=== PATIENT | female | born 1960 | race African-American/Black ===

== ENCOUNTER 2016-08-12 17:18 | Emergency (ER) | payer MEDICARE, MEDICAID ==
[~2016-08-12] VITALS: Ht 157.5 cm; Wt 56.7 kg
[~2016-08-12 17:18] MED LIST: ACETAMINOPHEN-1 EAC1 ORAL; ASPIRIN81 MG ORAL; BENADRYL ALLERG25 M1 PO; CATAPRES-TTS-31 EA TDERMAL; CIPROFLOXACIN500 M2 ORAL; COLACE100 MG/10 GT; COZAAR50 MG ORAL; CYCLOBENZAPRINE10 MG ORAL; FERROUS SULFAT325 MG ORAL; FIORICET1 EA ORAL; HYDROCODON-ACE1 EAC8 ORAL; LOPRESSOR25 M1 ORAL; MACROBID 100 M100 MG PO; MAG-OX 400400 MG PO; METOPROLOL SUC100 MG PO; METRONIDAZOLE500 MG ORAL; MIRALAX17 G2 ORAL; NITROSTAT0.4 M1 SL; NITROSTAT0.4 M2 SL; NORCO 10-325 T1 EACH PO; NORCO 5-325 TA1 EACH ORAL; NORCO 5-325 TA1 EACH PO; NORCO 5/3251 TAB ORAL; NORCO 7.5/3251 EA ORAL; NORCO1 E1 ORAL; NORVASC10 MG ORAL; NORVASC2.5 MG ORAL; OMEPRAZOLE20 M2 ORAL; PROTONIX40 MG ORAL; RISPERDAL1 MG PO; VICODIN ES 7.51 EACH ORAL; VICODIN ES 7.51 EACH PO; ZOFRAN ODT4 MG ORAL
[2016-08-12] MEDS ORDERED: Famotidine 20 MG/ 2ML VIAL IVP ONE (17:45)
[2016-08-12] MEDS ORDERED: Tylenol #3 tab (300mg/30mg) ORAL ONE (17:45)
--- NOTE | 2016-08-12 17:58 | Emergency Room Report ---
History of Present Illness General Chief Complaint: Chest Pain Source: Patient, Medical Record Present Illness HPI [id number] with chest pain for 4 days. pain is left sided, non radiating, worse with movement, reproducible. No associated fever/chills, cough, SOB. Per EMR, multiple visits here before - has had negative workup. Thought atypical chest pain d/t HTN. Also c/o 4 days of generalized abd pain. Denies assoc n/v/diarrhea. previous appy. No urinary complaints. Allergies: Coded Allergies: IBUPROFEN (Verified Allergy, Intermediate, RASH, 04/18/12) METOCLOPRAMIDE HCL (Verified Allergy, Intermediate, RASH, 04/18/12) MORPHINE (Verified Allergy, Intermediate, ESOPHAGUS CLOSED UP, 04/18/12) [place] 1999 PROCHLORPERAZINE EDISYLATE (Verified Allergy, Intermediate, RASH, 04/18/12) PROCHLORPERAZINE MALEATE (Verified Allergy, Intermediate, RASH, 04/18/12) Patient History Past Medical History: HTN Past Surgical History: appy Pertinent Family History: none Social History: Denies: alcohol use, drug use, smoking Last Menstrual Period: na Now: No Immunizations: UTD Reviewed Nursing Documentation: PMH: Agreed, PSxH: Agreed Nursing Documentation-PMH Past Medical History: No History, Except For Hx Cardiac Problems: Yes Hx Hypertension: Yes Hx COPD: No - restless leg syndrome Hx Diabetes: No Hx Cancer: No Hx Gastrointestinal Problems: Yes - GERD Hx Neurological Problems: No Hx Dizziness: Yes - X4 a week Hx Headaches: Yes - migraine Hx Numbness: Yes - bilateral legs and arms Hx Weakness: Yes - Bilateral legs and arms Review of Systems All Other Systems: negative except mentioned in HPI Physical Exam Vital Signs Date Time Temp Pulse Resp B/P Pulse Ox O2 Delivery O2 Flow Rate FiO2 08/12/16 17:27 98.2 129 20 100 Room Air Sp02 EP Interpretation: reviewed, abnormal General Appearance: normal inspection, well appearing, no apparent distress, alert, GCS 15, non-toxic, other - Talking on phone with son Head: normocephalic, atraumatic Eyes: bilateral eye EOMI, bilateral eye PERRL ENT: normal ENT inspection, hearing grossly normal, normal voice Neck: normal inspection, full range of motion, supple, no bony tend Respiratory: normal inspection, lungs clear, normal breath sounds, no respiratory distress, no retraction, no wheezing, other - Chest wall hyperasthesia, reproducible to any touch Cardiovascular #1: regular rate, rhythm, no edema Gastrointestinal: normal inspection, normal bowel sounds, non tender, soft, no guarding, no hernia Genitourinary: no CVA tenderness Musculoskeletal: normal inspection, back normal, normal range of motion, Eugene' s Sign negative Neurologic: normal inspection, alert, oriented x3, responsive, 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 TWI in V3-6 - seen on previous ECG - In 2016, multiple admissions for r/o ACS - had negative troponins, had EF 70% and negative nuclear scan - Troponin 0 here. Enough to r/o ACS given 4 days duration of chest pain Abd pain - Afebrile, no leuks. No focal ttp on exam - UA negative for UTI - No leuks or other metabolic abnormalities Utox + for benzos and opiates. Per [facility] 40x [place] tablets Rxed 08/06, 07/26, 07/16, 07/05, 06/25 to name a few. Almost weekly Rx from same MD as far back as July 2015. DC home EKG Diagnostic Results Rate: tachycardiac Rhythm: NSR ST Segments: other - TWI in lateral leads seen on previous ECG ASA given to the pt in ED: No Rhythm Strip Diag. Results EP Interpretation: yes Rate: 102 Rhythm: NSR, no PVC's, no ectopy Chest X-Ray Diagnostic Results EP Interpretation: Yes Findings: no consolidation, no effusion, no pneumothorax, no acute cardiopulmonary disease Number of Views: 1 Last Vital Signs Date Time Temp Pulse Resp B/P Pulse Ox O2 Delivery O2 Flow Rate FiO2 08/12/16 17:27 98.2 129 20 100 Room Air Status: improved Disposition: HOME, SELF-CARE Referrals: NON PHYSICIAN (PCP) BAUDILIO HARDY M.D. August 12, 2016 17:57
[2016-08-12 18:43] LABS: BASOPHILS % (AUTO) 1.1 % (0.0-2.0); EOSINOPHILS % (AUTO) 0.6 % (0.0-3.0); LYMPHOCYTES % (AUTO) 30.3 % (20.0-45.0); MEAN CORPUSCULAR HEMOGLOBIN 32.9 PG (27.0-31.0); MEAN CORPUSCULAR VOLUME 97 FL (80-99); MEAN PLATELET VOLUME 5.5 FL (6.5-10.1); NEUTROPHILS % (AUTO) 63.1 % (45.0-75.0); PLATELET COUNT 252 K/UL (150-450); RED BLOOD COUNT 4.02 M/UL (4.20-5.40); RED CELL DISTRIBUTION WIDTH 12.6 % (11.6-14.8)
[2016-08-12 18:48] LABS: APPEARANCE,URINE SLIGHTLY CLOUDY; KETONES,URINE NEGATIVE (NEGATIVE); LEUKOCYTE ESTERASE ,URINE NEGATIVE (NEGATIVE); NITRITE,URINE NEGATIVE (NEGATIVE); PH,URINE 6 (4.5-8.0); PROTEIN,URINE NEGATIVE (NEGATIVE); UROBILINOGEN,URINE NORMAL MG/DL (0.0-1.0)
[2016-08-12 18:52] LABS: BACTERIA,URINE FEW /HPF; WBC,URINE 0-2 /HPF (0 - 2)
[2016-08-12 18:53] LABS: SQUAMOUS EPITHELIAL CELL,UR MODERATE /LPF (NONE/OCC)
[2016-08-12 18:56] VITALS: BP 143/97
[2016-08-12 19:02] LABS: ALANINE AMINOTRANSFERASE 13 U/L (3-33); ALBUMIN/GLOBULIN RATIO 1.6 (1.0-2.7); ANION GAP 16 (5-15); ASPARTATE AMINO TRANSFERASE 20 U/L (5-40); CALCIUM 10.1 mg/dL (8.6-10.2); CARBON DIOXIDE 26 mEQ/L (20-30); CHLORIDE 100 mEQ/L (98-107); CREATININE 0.9 mg/dL (0.5-0.9); GLOMERULAR FILTRATION RATE > 60 mL/min (>60); HEMOLYSIS 9; POTASSIUM 3.9 mEQ/L (3.4-4.9); SODIUM 142 mEQ/L (135-145); TOTAL PROTEIN 8.4 g/dL (6.6-8.7)
[2016-08-12 19:03] LABS: TROPONIN I < 0.30 ng/mL (<=0.30)
[2016-08-12] MEDS ORDERED: ACETAMINOPHEN-1 EAC1 ORAL (19:10)
[2016-08-12 19:13] LABS: CKMB < 1.5 ng/mL (< 3.8)
[2016-08-12 19:24] VITALS: BP 123/88
--- NOTE | 2016-08-13 11:07 | Diagnostic Imaging Report ---
Indication: Chest Pain Comparison: 02/27/16 A single view chest radiograph was obtained. Findings: Cardiomediastinal appearance is within normal limits for age. Pulmonary vascularity is appropriate. The diaphragmatic contour is smooth and costophrenic angles are sharp. No pleural effusions are identified. The bones are unremarkable. Impression: No acute findings
--- NOTE | 2016-08-13 18:49 | Cardiology Report ---
APPROVED REPORT EKG Measurement Heart [id number] Sinus tachycardia T wave abnormality, consider lateral ischemia Abnormal ECG
== END 2016-08-12 19:24 | disposition home or self-care (01) ==
LOC: EMR 17:53
DX: R07.9 Chest pain, unspecified (principal); F19.20 Other psychoactive substance dependence, uncomplicated; R10.84 Generalized abdominal pain; I10 Essential (primary) hypertension; Z88.6 Allergy status to analgesic agent; Z88.8 Allergy status to other drugs, medicaments and biological substances; Z90.89 Acquired absence of other organs; K21.9 Gastro-esophageal reflux disease without esophagitis; R00.0 Tachycardia, unspecified
CPT/HCPCS: 36415; 71010; 80053; 80300; 81003; 82550; 82553; 84484; 85025; 93005; 96374; 96375; 99284; J2405; S0028

== ENCOUNTER 2016-08-24 15:55 | Emergency (ER) | payer MEDICARE, MEDICAID ==
[~2016-08-24] VITALS: Ht 157.5 cm; Wt 56.7 kg
[2016-08-24 16:30] VITALS: BP 161/100
[2016-08-24] MEDS ORDERED: Tylenol #3 tab (300mg/30mg) ORAL ONE (16:45)
[2016-08-24 17:30] VITALS: BP 156/88
--- NOTE | 2016-08-24 19:54 | Emergency Room Report ---
History of Present Illness General Chief Complaint: Multiple Trauma/Fall Source: Patient Present Illness HPI The patient is a 55-year-old female presenting with left elbow and right hand pain which occurred yesterday after falling. The patient states that she was walking in her home and tripped and fell onto wooden floor. She broke the fall with left elbow and right hand. Pain is described as an 8/10 dull ache and does not radiate. She denies previous injury to these areas. She denies any numbness or tingling. She denies any other symptoms including NASCIMENTO, dizziness, blurred vision, weakness, CP, SOB Allergies: Coded Allergies: IBUPROFEN (Verified Allergy, Intermediate, RASH, 04/18/12) METOCLOPRAMIDE HCL (Verified Allergy, Intermediate, RASH, 04/18/12) MORPHINE (Verified Allergy, Intermediate, ESOPHAGUS CLOSED UP, 04/18/12) IN 1999 PROCHLORPERAZINE EDISYLATE (Verified Allergy, Intermediate, RASH, 04/18/12) PROCHLORPERAZINE MALEATE (Verified Allergy, Intermediate, RASH, 04/18/12) Patient History Past Medical History: see triage record Pertinent Family History: none Reviewed Nursing Documentation: PMH: Agreed, PSxH: Agreed Nursing Documentation-PMH Past Medical History: No History, Except For Hx Cardiac Problems: Yes Hx Hypertension: Yes Hx COPD: No - restless leg syndrome Hx Diabetes: No Hx Cancer: No Hx Gastrointestinal Problems: Yes - GERD Hx Neurological Problems: No Hx Dizziness: Yes - X4 a week Hx Headaches: Yes - migraine Hx Numbness: Yes - bilateral legs and arms Hx Weakness: Yes - Bilateral legs and arms Review of Systems All Other Systems: negative except mentioned in HPI Physical Exam Vital Signs Date Time Temp Pulse Resp B/P Pulse Ox O2 Delivery O2 Flow Rate FiO2 08/24/16 16:07 97.9 105 20 161/100 97 Room Air Sp02 EP Interpretation: reviewed, normal General Appearance: no apparent distress, alert, GCS 15, non-toxic Head: normocephalic, atraumatic Eyes: bilateral eye PERRL, bilateral eye normal inspection Musculoskeletal: normal range of motion, tender - TTP over the L olecranon and R diffuse fingers Neurologic: alert, oriented x3, responsive, motor strength/tone normal, sensory intact, normal gait, speech normal Psychiatric: judgement/insight normal, memory normal, mood/affect normal, no suicidal/homicidal ideation Skin: normal color, no rash, warm/dry, well hydrated Lymphatic: no adenopathy Procedures Splinting Splinting : Consent: Verbal Location: L arm Pre-Made Type: sling Pre-Proc Neuro Vasc Exam: normal Post-Proc Neuro Vasc Exam: normal Patient Tolerated: Well Complications: None Medical Decision Making PA Attestation Dr. Ayala is my supervising physician. Patient management was discussed with my supervising physician Diagnostic Impression: Primary Impression: Left elbow pain Additional Impression: Right hand pain ER Course The patient is a 55-year-old female presenting with left elbow pain and right hand pain Ddx considered include but not limited to sprain/strain, fracture, contusion PE: NAD. L elbow: There is tenderness to palpation over the olecranon. No ecchymosis no edema. Full active range of motion Right hand: There is diffuse tenderness to palpation across all fingers. No obvious deformity. No edema. Full active range of motion X-rays are both unremarkable Left arm placed in a sling The patient is given pain medication and will be discharged ER precautions are given Other X-Ray Diagnostic Results Other X-Ray Diagnostic Results #1: X-Ray Ordered: L elbow Date: August 24, 2016 EP Interpretation: Yes Findings: no fractures, no dislocation, no soft tissue swelling Number of Views: 3 PA Scribe Text I am acting as scribe for my supervising physician. My supervising physician's interpretation of the L elbow xrays are there are no fractures, dislocations or soft tissue swelling. Other X-Ray Diagnostic Results #2: X-Ray Ordered: R hand Date: August 24, 2016 EP Interpretation: Yes Findings: no fractures, no dislocation, no soft tissue swelling Number of Views: 3 PA Scribe Text I am acting as scribe for my supervising physician. My supervising physician's interpretation of the R hand xrays are there are no fractures, dislocations or soft tissue swelling. Last Vital Signs Date Time Temp Pulse Resp B/P Pulse Ox O2 Delivery O2 Flow Rate FiO2 08/24/16 17:30 97.9 80 20 156/88 97 Room Air Status: improved Disposition: HOME, SELF-CARE Condition: Improved Patient Instructions: Contusion Additional Instructions: I discussed my findings with the patient. All questions and concerns have been answered. Treatment and medication compliance have been addressed. I advised the patient that they need to follow up with PMD in 3-5 days. Return to ED if pain remains or worsens, numbness or tingling occurs, new rash is noticed, fever is noticed, or if needed for any reason. Patient verbalized understanding of discharge instructions. The patient will need to follow up with pain management for further pain control JUNIE FERNÁNDEZ August 24, 2016 19:54
--- NOTE | 2016-08-25 10:47 | Diagnostic Imaging Report ---
Indication: pain Findings: 3 views of the right hand were obtained. Normal bony mineralization and alignment are demonstrated. No acute fractures, erosions, or periosteal reaction are seen. Soft tissues are unremarkable. Impression: Negative examination of the right hand.
--- NOTE | 2016-08-25 10:47 | Diagnostic Imaging Report ---
Indication: Pain Findings: 3 views of the left elbow were obtained. No acute fractures, malalignment, erosions or periostitis are identified. Bone mineralization is within normal limits. Soft tissues are unremarkable. Impression: Negative examination of the elbow.
== END 2016-08-24 17:36 | disposition home or self-care (01) ==
LOC: EMR 16:35
DX: M25.522 Pain in left elbow (principal); M79.641 Pain in right hand; I10 Essential (primary) hypertension; Z88.6 Allergy status to analgesic agent; Z88.8 Allergy status to other drugs, medicaments and biological substances; G25.81 Restless legs syndrome
CPT/HCPCS: 29240; 99284

== ENCOUNTER 2017-09-26 16:32 | Inpatient (IN) | payer MEDICARE, MEDICAID ==
[~2017-09-26] VITALS: Ht 157.5 cm; Wt 57.2 kg
--- NOTE | 2017-09-26 16:55 | Emergency Room Report ---
History of Present Illness General Chief Complaint: Chest Pain Source: Patient Present Illness HPI 56-year-old female presents emergency department complaining of 6 out of 10 in severity left sided anterior chest pain 2 days. Patient reports she took aspirin 325 as well as 2 of her sublingual nitroglycerin pills at approximately 8:30 this morning with no relief of her symptoms. She reports that her pain is reproducible with palpation as well as taking deep breaths. Patient states that she also is having left-sided upper arm and left-sided hip pain status post mechanical fall 4 days ago. Patient states that afterwards she did not have the chest pain until 2 days later. Patient denies hitting her head she denies loss of consciousness. She states that she was walking in the hallway when her left leg gave out on her. Patient reports history of sciatica, irregular heart rhythm, high blood pressure and previous episodes of chest pain as well. Patient denies dizziness, nausea, vomiting or abdominal pain. Patient denies recent illness/respiratory infection. Denies cough. Denies palpitations, or feeling short of breath. Allergies: Coded Allergies: IBUPROFEN (Verified Allergy, Intermediate, RASH, 04/18/12) METOCLOPRAMIDE HCL (Verified Allergy, Intermediate, RASH, 04/18/12) PROCHLORPERAZINE EDISYLATE (Verified Allergy, Intermediate, RASH, 04/18/12) PROCHLORPERAZINE MALEATE (Verified Allergy, Intermediate, RASH, 04/18/12) Patient History Past Medical History: see triage record, HTN Past Surgical History: none Pertinent Family History: none Last Menstrual Period: Hysterectomy Now: No Reviewed Nursing Documentation: PMH: Agreed; PSxH: Agreed Nursing Documentation-PMH Hx Cardiac Problems: Yes Hx Hypertension: Yes Hx COPD: No - restless leg syndrome Hx Diabetes: No Hx Cancer: No Hx Gastrointestinal Problems: Yes - GERD, Cesarian, Hysterectomy, Appendectomy Hx Neurological Problems: No Hx Dizziness: Yes - X4 a week Hx Headaches: Yes - migraine Hx Numbness: Yes - bilateral legs and arms Hx Weakness: Yes - Bilateral legs and arms Review of Systems All Other Systems: negative except mentioned in HPI Physical Exam Vital Signs Date Time Temp Pulse Resp B/P (MAP) Pulse Ox O2 Delivery O2 Flow Rate FiO2 09/26/17 16:42 98.2 121 18 178/92 97 Room Air 98.2 Sp02 EP Interpretation: reviewed, normal General Appearance: no apparent distress, alert, GCS 15, non-toxic Head: normocephalic, atraumatic Eyes: bilateral eye normal inspection, bilateral eye PERRL ENT: hearing grossly normal, normal voice Neck: full range of motion Respiratory: lungs clear, normal breath sounds, no rhonchi, no respiratory distress, no accessory muscle use, speaking full sentences, other - Chest ttp anteriorly and left lateral Cardiovascular #1: no edema, normal capillary refill, tachycardia Gastrointestinal: non tender, soft Rectal: deferred Genitourinary: normal inspection Musculoskeletal: back normal, normal range of motion, non-tender, other - compensated gait, ttp to the left lateral hip, no knee ttp. FROM , ttp to the lateral aspect of the left shoulder, no obvious deformity Neurologic: alert, oriented x3, responsive, motor strength/tone normal, sensory intact, speech normal, grossly normal Psychiatric: judgement/insight normal Skin: normal color, no rash, warm/dry, well hydrated Medical Decision Making PA Attestation Dr. Jamison is my supervising Physician whom patient management has been discussed with. Diagnostic Impression: Primary Impression: ACS (acute coronary syndrome) Additional Impressions: Contusion of hip, left Qualified Codes: S70.02XA - Contusion of left hip, initial encounter Contusion of shoulder, left Qualified Codes: S40.012A - Contusion of left shoulder, initial encounter ER Course 56-year-old female presents emergency department complaining of 6 out of 10 in severity left sided anterior chest pain 2 days. Patient reports she took aspirin 325 as well as 2 of her sublingual nitroglycerin pills at approximately 8:30 this morning with no relief of her symptoms. She reports that her pain is reproducible with palpation as well as taking deep breaths. Patient states that she also is having left-sided upper arm and left-sided hip pain status post mechanical fall 4 days ago. Patient states that afterwards she did not have the chest pain until 2 days later. Patient denies hitting her head she denies loss of consciousness. She states that she was walking in the hallway when her left leg gave out on her. Patient reports history of sciatica, irregular heart rhythm, high blood pressure and previous episodes of chest pain as well. Patient denies dizziness, nausea, vomiting or abdominal pain. Patient denies recent illness/respiratory infection. Denies cough. Denies palpitations, or feeling short of breath. Ddx considered but are not limited to MA, pneumonia, contusion, costochondritis , PE, ACS, Shoulder strain, Chest wall contusion. aortic dissection. Vital signs: are WNL, pt. is afebrile H&PE are most consistent with ACS, and contusions. Pt. with cardiac RF's ORDERS: - EKG: Sinus tachycardia 100bpm, with ST segment depression in lateral leads and T wave inversions. -CBC: low WBC's and RBC's -CMP: unremarkable -CK-MB: WNL -Troponins: 0.00 CXR: Unremarakable -Xrays: Right shoulder and Right Hip: negative for acute fractures. ED INTERVENTIONS: - PT. placed on cardiac monitoring. -IV access -4mg Morphine IV x 2 DISPOSITION: at this time pt. will be admitted to Dr. Kirkpatrick for ACS. Dr. Kirkpatrick agreed to admit the pt. and to continue pt. care management. Labs Test 09/26/17 17:29 White Blood Count 3.0 K/UL (4.8-10.8) Red Blood Count 4.08 M/UL (4.20-5.40) Hemoglobin 12.3 G/DL (12.0-16.0) Hematocrit 38.3 % (37.0-47.0) Mean Corpuscular Volume 94 FL (80-99) Mean Corpuscular Hemoglobin 30.2 PG (27.0-31.0) Mean Corpuscular Hemoglobin Concent 32.2 G/DL (32.0-36.0) Red Cell Distribution Width 12.5 % (11.6-14.8) Platelet Count 259 K/UL (150-450) Mean Platelet Volume 5.8 FL (6.5-10.1) Neutrophils (%) (Auto) 57.9 % (45.0-75.0) Lymphocytes (%) (Auto) 35.3 % (20.0-45.0) Monocytes (%) (Auto) 5.3 % (1.0-10.0) Eosinophils (%) (Auto) 0.3 % (0.0-3.0) Basophils (%) (Auto) 1.3 % (0.0-2.0) Sodium Level 143 MMOL/L (136-145) Potassium Level 4.4 MMOL/L (3.5-5.1) Chloride Level 108 MMOL/L (98-107) Carbon Dioxide Level 28 MMOL/L (21-32) Anion Gap 7 mmol/L (5-15) Blood Urea Nitrogen 9 mg/dL (7-18) Creatinine 0.8 MG/DL (0.55-1.30) Estimat Glomerular Filtration Rate > 60 mL/min (>60) Glucose Level 130 MG/DL (74-106) Calcium Level 9.5 MG/DL (8.5-10.1) Total Bilirubin 0.3 MG/DL (0.2-1.0) Aspartate Amino Transf (AST/SGOT) 12 U/L (15-37) Alanine Aminotransferase (ALT/SGPT) 15 U/L (12-78) Alkaline Phosphatase 89 U/L (46-116) Total Creatine Kinase 87 U/L (26-308) Creatine Kinase MB < 0.5 NG/ML (0.0-3.6) Creatine Kinase MB Relative Index 0.5 Troponin I 0.000 ng/mL (0.000-0.056) Total Protein 8.4 G/DL (6.4-8.2) Albumin 4.4 G/DL (3.4-5.0) Globulin 4.0 g/dL Albumin/Globulin Ratio 1.1 (1.0-2.7) EKG Diagnostic Results Rate: tachycardiac - 100bpm Rhythm: NSR ST Segments: other - ST segment depression in lateral leads and T wave inversions. ASA given to the pt in ED: No - Pt. 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 Chest X-Ray Diagnostic Results Chest X-Ray Diagnostic Results : Chest X-Ray Ordered: Yes # of Views/Limited/Complete: 1 View Indication: Chest Pain EP Interpretation: Yes PA Xray: Interpretation reviewed, by supervising MD, and agrees with findings. Interpretation: no consolidation, no effusion, no pneumothorax, no acute cardiopulmonary disease Impression: No acute disease Electronically Signed by: Christie Lama PA-C Other X-Ray Diagnostic Results Other X-Ray Diagnostic Results #1: X-Ray ordered: Left Shoulder # of Views/Limited Vs Complete: 3 View Indication: Pain EP Interpretation: Yes SANDRA Xray: Interpretation reviewed, by supervising MD, and agrees with findings. Interpretation: no dislocation, no soft tissue swelling, no fractures Impression: No acute disease Electronically Signed by: Christie Lama PA-C Other X-Ray Diagnostic Results #2: X-Ray ordered: Left Hip # of Views/Limited Vs Complete: 2 View Indication: Pain EP Interpretation: Yes PA Xray: Interpretation reviewed, by supervising MD, and agrees with findings. Interpretation: no dislocation, no soft tissue swelling, no fractures Impression: No acute disease Electronically Signed by: Christie Lama PA-C Last Vital Signs Date Time Temp Pulse Resp B/P (MAP) Pulse Ox O2 Delivery O2 Flow Rate FiO2 09/26/17 16:42 98.2 121 18 178/92 97 Room Air 98.2 Disposition: ADMITTED INPATIENT Condition: Serious Christie Lama Sep 26, 2017 16:55
[2017-09-26 17:00] VITALS: BP 156/96
[2017-09-26] MEDS ORDERED: Morphine Sulfate 4mg/ml Inj IVP ONE ×2 (17:30→20:45)
[2017-09-26 17:45] LABS: BASOPHILS % (AUTO) 1.3 % (0.0-2.0); EOSINOPHILS % (AUTO) 0.3 % (0.0-3.0); HEMATOCRIT 38.3 % (37.0-47.0); HEMOGLOBIN 12.3 G/DL (12.0-16.0); LYMPHOCYTES % (AUTO) 35.3 % (20.0-45.0); MEAN CORPUSCULAR VOLUME 94 FL (80-99); MONOCYTES % (AUTO) 5.3 % (1.0-10.0); NEUTROPHILS % (AUTO) 57.9 % (45.0-75.0); PLATELET COUNT 259 K/UL (150-450); RED BLOOD COUNT 4.08 M/UL (4.20-5.40); RED CELL DISTRIBUTION WIDTH 12.5 % (11.6-14.8)
[2017-09-26 17:54] LABS: ANION GAP 7 mmol/L (5-15); BLOOD UREA NITROGEN 9 mg/dL (7-18); CALCIUM 9.5 MG/DL (8.5-10.1); CARBON DIOXIDE 28 MMOL/L (21-32); CHLORIDE 108 MMOL/L (98-107); CREATININE 0.8 MG/DL (0.55-1.30); POTASSIUM 4.4 MMOL/L (3.5-5.1); SODIUM 143 MMOL/L (136-145)
[2017-09-26 18:00] VITALS: BP 127/89
[2017-09-26 18:07] LABS: ALANINE AMINOTRANSFERASE 15 U/L (12-78); ALBUMIN 4.4 G/DL (3.4-5.0); ALBUMIN/GLOBULIN RATIO 1.1 (1.0-2.7); ALKALINE PHOSPHATASE 89 U/L (46-116); ASPARTATE AMINO TRANSFERASE 12 U/L (15-37); BILIRUBIN,TOTAL 0.3 MG/DL (0.2-1.0); CKMB < 0.5 NG/ML (0.0-3.6); CREATINE KINASE 87 U/L (26-308)
[2017-09-26] MEDS ORDERED: AMBIEN10 M1 ORAL (18:58)
[2017-09-26] MEDS ORDERED: NORCO 7.5-3251 EACH ORAL (18:58)
[2017-09-26] MEDS ORDERED: ATENOLOL25 MG ORAL (18:58)
[2017-09-26] MEDS ORDERED: DIAZEPAM10 MG ORAL (18:58)
[2017-09-26 20:27] VITALS: BP 126/87
[2017-09-26 21:46] VITALS: BP 130/78
[2017-09-26] MEDS ORDERED: Cyclobenzaprine 10mg Tab ORAL PRN (23:00)
[2017-09-26] MEDS ORDERED: Albuterol/Ipratropium 3ml neb HHN PRN (23:00)
[2017-09-26] MEDS ORDERED: Enalaprilat 2.5mg/2ml Inj IV PRN (23:00)
[2017-09-26] MEDS ORDERED: Miralax 17gm pkt ORAL PRN (23:00)
[2017-09-26] MEDS ORDERED: dilTIAZem HCl 25mg/5ml Inj IV PRN (23:00)
[2017-09-26] MEDS ORDERED: Nitroglycerin Subl 0.4mg tab SL PRN (23:00)
[2017-09-27] MEDS: Morphine Sulfate 2mg/ml Inj IVP PRN ×5 (01:22→20:24)
[2017-09-27 04:00] VITALS: BP 155/96
[2017-09-27 07:37] LABS: BASOPHILS % (AUTO) 0.4 % (0.0-2.0); EOSINOPHILS % (AUTO) 0.6 % (0.0-3.0); HEMATOCRIT 34.6 % (37.0-47.0); HEMOGLOBIN 11.1 G/DL (12.0-16.0); LYMPHOCYTES % (AUTO) 41.5 % (20.0-45.0); MEAN CORPUSCULAR VOLUME 94 FL (80-99); MONOCYTES % (AUTO) 5.8 % (1.0-10.0); NEUTROPHILS % (AUTO) 51.6 % (45.0-75.0); PLATELET COUNT 248 K/UL (150-450); RED CELL DISTRIBUTION WIDTH 12.1 % (11.6-14.8); WHITE BLOOD COUNT 4.9 K/UL (4.8-10.8)
[2017-09-27 07:52] VITALS: BP 154/91
[2017-09-27] MEDS: Losartan 50mg tab ORAL SCH (08:09)
[2017-09-27] MEDS: Atenolol 25mg tab ORAL SCH (08:09)
[2017-09-27] MEDS: Heparin 5000 units/ml inj SUBQ SCH ×2 (08:10→20:32)
[2017-09-27 08:28] LABS: INR 1.1 (0.9-1.1)
[2017-09-27 08:32] LABS: CHOLESTEROL 158 MG/DL (< 200); HDL CHOLESTEROL 47 MG/DL (40-60); TRIGLYCERIDES 151 MG/DL (30-150)
[2017-09-27] MEDS ORDERED: Metoprolol 25mg tab ORAL SCH (09:00)
[2017-09-27] MEDS ORDERED: CATAPRES-TTS 11 EACH TDERMAL (09:15)
--- NOTE | 2017-09-27 10:47 | Diagnostic Imaging Report ---
Indication: Reason For Exam: PAIN Technique: 3 views of the left shoulder Comparison: None Findings: No acute fractures or dislocations. Joint spaces are preserved. Impression: Negative
--- NOTE | 2017-09-27 10:47 | Diagnostic Imaging Report ---
Indication: Chest pain Technique: One view of the chest Comparison: 08/12/2016 Findings: Lungs and pleural spaces are clear. Heart size is normal. No significant interim change Impression: No acute process
--- NOTE | 2017-09-27 10:48 | Diagnostic Imaging Report ---
Indication: Hip pain Technique: 2 views of the left hip Comparison: Findings: No acute fractures. No dislocations. There are proliferative changes of the left acetabulum Impression: Mild degenerative changes. No acute bony trauma
[2017-09-27 11:40] VITALS: BP 126/78
--- NOTE | 2017-09-27 12:03 | History and Physical ---
History of Present Illness General Date patient seen: Sep 27, 2017 Reason for Hospitalization: Chest Pain Present Illness HPI 56-year-old female with hx of CAD, HTN presented to emergency department complaining of 6 out of 10 in severity left sided anterior chest pain 2 days. She reports that her pain is reproducible with palpation as well as taking deep breaths. She states that she was walking in the hallway when her left leg gave out on her. Patient denies dizziness, nausea, vomiting or abdominal pain. Patient denies recent illness/respiratory infection. Allergies: Coded Allergies: IBUPROFEN (Verified Allergy, Intermediate, RASH, 04/18/12) METOCLOPRAMIDE HCL (Verified Allergy, Intermediate, RASH, 04/18/12) PROCHLORPERAZINE EDISYLATE (Verified Allergy, Intermediate, RASH, 04/18/12) PROCHLORPERAZINE MALEATE (Verified Allergy, Intermediate, RASH, 04/18/12) Medication History Scheduled Amlodipine Besylate (Norvasc), 2.5 MG ORAL DAILY, (Reported) Aspirin* (Aspirin*), 81 MG ORAL DAILY, (Reported) Atenolol* (Tenormin*), 25 MG ORAL DAILY, (Reported) Ciprofloxacin Hcl* (Ciprofloxacin Hcl*), 500 MG ORAL Q12H Clonidine HCl (Catapres-Tts 3), 1 PATCH TDERMAL QWEEK, (Reported) Ihufgiwzr-Kfi-0* (Jdgaptzc-Mxw-3*), 1 PATCH TDERMAL ONCE A WEEK, (Reported) Diazepam* (Diazepam*), 10 MG ORAL PRN, (Reported) Losartan Potassium* (Cozaar*), 50 MG ORAL DAILY, (Reported) Metoprolol Tartrate (Metoprolol Tartrate), 25 MG ORAL DAILY, (Reported) Metronidazole* (Flagyl*), 500 MG ORAL BID Scheduled PRN Acetaminophen With Codeine (T#3) (Tylenol #3 Tab*), 1 TAB ORAL BID PRN for severe pain Cyclobenzaprine Hcl* (Flexeril*), 10 MG ORAL BID PRN for Muscle Spasm Hydrocodone Bit/Acetaminophen 7.5-325* ([place] 7.5-325*), 1 TAB ORAL Q8HR PRN for For Pain, (Reported) Zolpidem Tartrate* (Ambien*), 10 MG ORAL HS PRN for Insomnia, (Reported) Miscellaneous Medications Nitroglycerin (Nitrostat), 0.4 MG SL, (Reported) Patient History Healthcare decision maker Resuscitation status Full Code Advanced Directive on File Past Medical/Surgical History Past Medical/Surgical History: (1) HTN (hypertension) (2) GERD (gastroesophageal reflux disease) (3) Costochondritis Review of Systems All Other Systems: negative except mentioned in HPI Physical Exam General Appearance: WD/WN Lines, tubes and drains: peripheral HEENT: normocephalic, atraumatic Neck: non-tender, normal alignment Respiratory/Chest: chest wall non-tender, lungs clear Cardiovascular/Chest: normal peripheral pulses, normal rate Abdomen: normal bowel sounds, non tender Genitourinary/Rectal: normal genital exam Extremities: normal range of motion Skin Exam: warm/dry 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 grossly normal Last 24 Hour Vital Signs Date Time Temp Pulse Resp B/P (MAP) Pulse Ox O2 Delivery O2 Flow Rate FiO2 09/27/17 11:40 97.7 63 18 126/78 98 Room Air 97.7 09/27/17 11:31 97.0 09/27/17 11:01 97.0 09/27/17 10:38 86 20 Room Air 21 09/27/17 08:09 154/91 09/27/17 08:09 79 154/91 09/27/17 08:09 79 154/91 09/27/17 07:53 67 09/27/17 07:52 97.0 79 18 154/91 98 Room Air 97.0 09/27/17 04:27 62 09/27/17 04:00 98.0 80 20 155/96 98 Room Air 98.0 09/26/17 23:56 68 09/26/17 22:00 97.5 71 16 130/78 100 Room Air 97.5 09/26/17 21:46 97.5 71 16 130/78 100 Room Air 97.5 09/26/17 20:51 98.4 09/26/17 20:27 98.4 74 16 126/87 100 Room Air 98.4 09/26/17 18:00 98.3 72 13 127/89 100 Room Air 98.3 09/26/17 17:00 98.0 94 19 156/96 100 Room Air 98.0 09/26/17 17:00 94 19 Room Air 09/26/17 16:42 98.2 121 18 178/92 97 Room Air 98.2 Intake and Output 09/26/17 09/27/17 19:00 07:00 Intake Total 1000 ml Balance 1000 ml Intake Oral 0 ml IV Total 1000 ml # Bowel Movements 1 Laboratory Tests Test 09/26/17 17:29 09/26/17 20:40 09/27/17 05:50 White Blood Count 3.0 K/UL (4.8-10.8) L 4.9 K/UL (4.8-10.8) # Red Blood Count 4.08 M/UL (4.20-5.40) L 3.70 M/UL (4.20-5.40) L Hemoglobin 12.3 G/DL (12.0-16.0) 11.1 G/DL (12.0-16.0) L Hematocrit 38.3 % (37.0-47.0) 34.6 % (37.0-47.0) L Mean Corpuscular Volume 94 FL (80-99) 94 FL (80-99) Mean Corpuscular Hemoglobin 30.2 PG (27.0-31.0) 30.0 PG (27.0-31.0) Mean Corpuscular Hemoglobin Concent 32.2 G/DL (32.0-36.0) 32.0 G/DL (32.0-36.0) Red Cell Distribution Width 12.5 % (11.6-14.8) 12.1 % (11.6-14.8) Platelet Count 259 K/UL (150-450) 248 K/UL (150-450) Mean Platelet Volume 5.8 FL (6.5-10.1) L 5.6 FL (6.5-10.1) L Neutrophils (%) (Auto) 57.9 % (45.0-75.0) 51.6 % (45.0-75.0) Lymphocytes (%) (Auto) 35.3 % (20.0-45.0) 41.5 % (20.0-45.0) Monocytes (%) (Auto) 5.3 % (1.0-10.0) 5.8 % (1.0-10.0) Eosinophils (%) (Auto) 0.3 % (0.0-3.0) 0.6 % (0.0-3.0) Basophils (%) (Auto) 1.3 % (0.0-2.0) 0.4 % (0.0-2.0) Sodium Level 143 MMOL/L (136-145) Potassium Level 4.4 MMOL/L (3.5-5.1) Chloride Level 108 MMOL/L (98-107) H Carbon Dioxide Level 28 MMOL/L (21-32) Anion Gap 7 mmol/L (5-15) Blood Urea Nitrogen 9 mg/dL (7-18) Creatinine 0.8 MG/DL (0.55-1.30) Estimat Glomerular Filtration Rate > 60 mL/min (>60) Glucose Level 130 MG/DL (74-106) H Calcium Level 9.5 MG/DL (8.5-10.1) Total Bilirubin 0.3 MG/DL (0.2-1.0) Aspartate Amino Transf (AST/SGOT) 12 U/L (15-37) L Alanine Aminotransferase (ALT/SGPT) 15 U/L (12-78) Alkaline Phosphatase 89 U/L (46-116) Total Creatine Kinase 87 U/L (26-308) Creatine Kinase MB < 0.5 NG/ML (0.0-3.6) Creatine Kinase MB Relative Index 0.5 Troponin I 0.000 ng/mL (0.000-0.056) 0.000 ng/mL (0.000-0.056) 0.000 ng/mL (0.000-0.056) Total Protein 8.4 G/DL (6.4-8.2) H Albumin 4.4 G/DL (3.4-5.0) Globulin 4.0 g/dL Albumin/Globulin Ratio 1.1 (1.0-2.7) Prothrombin Time 11.0 SEC (9.30-11.50) Prothromb Time International Ratio 1.1 (0.9-1.1) Activated Partial Thromboplast Time 27 SEC (23-33) C-Reactive Protein, Quantitative < 0.4 mg/dL (0.00-0.90) Triglycerides Level 151 MG/DL (30-150) H Cholesterol Level 158 MG/DL (< 200) LDL Cholesterol 89 mg/dL (<100) HDL Cholesterol 47 MG/DL (40-60) Cholesterol/HDL Ratio 3.4 (3.3-4.4) Thyroid Stimulating Hormone (TSH) 0.946 uiU/mL (0.358-3.740) Height (Feet): 5 Height (Inches): 2.00 Weight (Pounds): 126 Medications Current Medications Medications (Trade) Dose Ordered Sig/Tamra Route PRN Reason Start Time Stop Time Status Last Admin Dose Admin Acetaminophen (Tylenol) 650 mg Q4H PRN ORAL FEVER 09/26/17 23:00 10/26/17 22:59 Albuterol/ Ipratropium (Albuterol/ Ipratropium) 3 ml Q4H PRN HHN Shortness of Breath 09/26/17 23:00 10/01/17 22:59 Amlodipine Besylate (Norvasc) 2.5 mg DAILY ORAL 09/27/17 09:00 10/27/17 08:59 09/27/17 08:09 Atenolol (Tenormin) 25 mg DAILY ORAL 09/27/17 09:00 10/27/17 08:59 09/27/17 08:09 Cyclobenzaprine HCl (Flexeril) 10 mg BID PRN ORAL Muscle Spasm 09/26/17 23:00 10/26/17 22:59 Diltiazem HCl (Cardizem) 10 mg Q1H PRN IV heart rate more than 120, 09/26/17 23:00 10/26/17 22:59 Enalaprilat (Vasotec) 2.5 mg Q6H PRN IV sbp more than 160 09/26/17 23:00 10/26/17 22:59 Heparin Sodium (Porcine) (Heparin 5000 units/ml) 5,000 units EVERY 12 HOURS SUBQ 09/27/17 09:00 10/27/17 08:59 Losartan Potassium (Cozaar) 50 mg DAILY ORAL 09/27/17 09:00 10/27/17 08:59 09/27/17 08:09 Morphine Sulfate (Morphine Sulfate) 2 mg Q4H PRN IVP severe Pain (Pain Scale 7-10) 09/26/17 23:00 10/03/17 22:59 09/27/17 11:01 Nitroglycerin (Ntg) 0.4 mg PRN PRN SL Prn Chest Pain 09/26/17 23:00 7/28/18 22:59 Ondansetron HCl (Zofran) 4 mg Q6H PRN IVP Nausea & Vomiting 09/26/17 23:00 10/26/17 22:59 Polyethylene Glycol (Miralax) 17 gm DAILYPRN PRN ORAL Constipation 09/26/17 23:00 10/26/17 22:59 Temazepam (Restoril) 15 mg HSPRN PRN ORAL Insomnia 09/26/17 23:00 10/03/17 22:59 09/27/17 03:44 Assessment/Plan Problem List: (1) ACS (acute coronary syndrome) ICD Codes: I24.9 - Acute ischemic heart disease, unspecified SNOMED: 721256743 (2) Encephalopathy acute ICD Codes: G93.40 - Encephalopathy, unspecified SNOMED: 93200447, 266516138 (3) Costochondritis ICD Codes: M94.0 - Chondrocostal junction syndrome [[place]] SNOMED: 41054237 (4) HTN (hypertension) ICD Codes: I10 - HTN (hypertension) SNOMED: 83930029 (5) GERD (gastroesophageal reflux disease) ICD Codes: K21.9 - Gastro-esophageal reflux disease without esophagitis SNOMED: 765268979 Assessment/Plan serial ekg, troponin echo cardiology evaluation telemetry monitoring symptomatic treatment Stacia Kirkpatrick MD Sep 27, 2017 12:03
--- NOTE | 2017-09-27 13:08 | Cardiology Report ---
APPROVED REPORT EKG Measurement Heart [id number] Sinus tachycardia Biatrial enlargement Abnormal ECG
[2017-09-27 16:04] VITALS: BP 158/90
[2017-09-27 20:00] VITALS: BP 147/78
[2017-09-28] VITALS: BP 159/93
[2017-09-28] MEDS: Morphine Sulfate 2mg/ml Inj IVP PRN ×6 (00:21→22:43)
--- NOTE | 2017-09-28 00:42 | Consultation ---
History of Present Illness General Date patient seen: Sep 27, 2017 Time patient seen: 15:45 Chief Complaint: Chest Pain Present Illness HPI 56 year old female with HTN and CAD presents with left precordial chest pain for the past few days, She has been compliant with her medications, no recent fevers or trauma. The pain gets worse with exertion, it lasts a few minutes and is 6/10 in intensity. Troponin is negative x4. CXR with no acute process, EKG sinus rhythm and echo with LV function 60 percent and mild valvular disease Allergies: Coded Allergies: IBUPROFEN (Verified Allergy, Intermediate, RASH, 04/18/12) METOCLOPRAMIDE HCL (Verified Allergy, Intermediate, RASH, 04/18/12) PROCHLORPERAZINE EDISYLATE (Verified Allergy, Intermediate, RASH, 04/18/12) PROCHLORPERAZINE MALEATE (Verified Allergy, Intermediate, RASH, 04/18/12) Medication History Scheduled Amlodipine Besylate (Norvasc), 2.5 MG ORAL DAILY, (Reported) Aspirin* (Aspirin*), 81 MG ORAL DAILY, (Reported) Atenolol* (Tenormin*), 25 MG ORAL DAILY, (Reported) Ciprofloxacin Hcl* (Ciprofloxacin Hcl*), 500 MG ORAL Q12H Clonidine HCl (Catapres-Tts 3), 1 PATCH TDERMAL QWEEK, (Reported) Tdxhhecer-Fzb-7* (Swkvof[place]-Ckk-2*), 1 PATCH TDERMAL ONCE A WEEK, (Reported) Diazepam* (Diazepam*), 10 MG ORAL PRN, (Reported) Losartan Potassium* (Cozaar*), 50 MG ORAL DAILY, (Reported) Metoprolol Tartrate (Metoprolol Tartrate), 25 MG ORAL DAILY, (Reported) Metronidazole* (Flagyl*), 500 MG ORAL BID Scheduled PRN Acetaminophen With Codeine (T#3) (Tylenol #3 Tab*), 1 TAB ORAL BID PRN for severe pain Cyclobenzaprine Hcl* (Flexeril*), 10 MG ORAL BID PRN for Muscle Spasm Hydrocodone Bit/Acetaminophen 7.5-325* ([place] 7.5-325*), 1 TAB ORAL Q8HR PRN for For Pain, (Reported) Zolpidem Tartrate* (Ambien*), 10 MG ORAL HS PRN for Insomnia, (Reported) Miscellaneous Medications Nitroglycerin (Nitrostat), 0.4 MG SL, (Reported) Patient History Healthcare decision maker Resuscitation status Full Code Advanced Directive on File Review of Systems Constitutional: Reports: no symptoms Eye: Reports: no symptoms ENT: Reports: no symptoms Respiratory: Reports: no symptoms Cardiovascular: Reports: chest pain Gastrointestinal: Reports: no symptoms Genitourinary: Reports: no symptoms Musculoskeletal: Reports: no symptoms Skin: Reports: no symptoms Psychiatric: Reports: no symptoms Neurological: Reports: no symptoms Endocrine: Reports: no symptoms Hematologic/Lymphatic: Reports: no symptoms Physical Exam General Appearance: no apparent distress Lines, tubes and drains: peripheral HEENT: normocephalic, atraumatic Neck: non-tender, normal alignment Respiratory/Chest: chest wall non-tender Cardiovascular/Chest: normal peripheral pulses Abdomen: normal bowel sounds Extremities: normal range of motion Skin Exam: normal pigmentation 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 grossly normal Last 24 Hour Vital Signs Date Time Temp Pulse Resp B/P (MAP) Pulse Ox O2 Delivery O2 Flow Rate FiO2 09/28/17 00:21 97.7 09/27/17 20:54 97.7 09/27/17 20:24 97.7 09/27/17 20:00 98.2 69 18 147/78 98 Room Air 98.2 09/27/17 20:00 85 09/27/17 16:31 97.7 09/27/17 16:04 97.7 65 18 158/90 98 Room Air 97.7 09/27/17 15:53 55 09/27/17 11:55 62 09/27/17 11:40 97.7 63 18 126/78 98 Room Air 97.7 09/27/17 11:01 97.0 09/27/17 10:38 86 20 Room Air 21 09/27/17 08:09 154/91 09/27/17 08:09 79 154/91 09/27/17 08:09 79 154/91 09/27/17 07:53 67 09/27/17 07:52 97.0 79 18 154/91 98 Room Air 97.0 09/27/17 04:27 62 09/27/17 04:00 98.0 80 20 155/96 98 Room Air 98.0 Intake and Output 09/27/17 09/28/17 19:00 07:00 Intake Total 480 ml Balance 480 ml Intake Oral 480 ml # Voids 4 Laboratory Tests Test 09/27/17 05:50 09/27/17 23:30 White Blood Count 4.9 K/UL (4.8-10.8) # Red Blood Count 3.70 M/UL (4.20-5.40) L Hemoglobin 11.1 G/DL (12.0-16.0) L Hematocrit 34.6 % (37.0-47.0) L Mean Corpuscular Volume 94 FL (80-99) Mean Corpuscular Hemoglobin 30.0 PG (27.0-31.0) Mean Corpuscular Hemoglobin Concent 32.0 G/DL (32.0-36.0) Red Cell Distribution Width 12.1 % (11.6-14.8) Platelet Count 248 K/UL (150-450) Mean Platelet Volume 5.6 FL (6.5-10.1) L Neutrophils (%) (Auto) 51.6 % (45.0-75.0) Lymphocytes (%) (Auto) 41.5 % (20.0-45.0) Monocytes (%) (Auto) 5.8 % (1.0-10.0) Eosinophils (%) (Auto) 0.6 % (0.0-3.0) Basophils (%) (Auto) 0.4 % (0.0-2.0) Prothrombin Time 11.0 SEC (9.30-11.50) Prothromb Time International Ratio 1.1 (0.9-1.1) Activated Partial Thromboplast Time 27 SEC (23-33) Troponin I 0.000 ng/mL (0.000-0.056) 0.000 ng/mL (0.000-0.056) C-Reactive Protein, Quantitative < 0.4 mg/dL (0.00-0.90) Triglycerides Level 151 MG/DL (30-150) H Cholesterol Level 158 MG/DL (< 200) LDL Cholesterol 89 mg/dL (<100) HDL Cholesterol 47 MG/DL (40-60) Cholesterol/HDL Ratio 3.4 (3.3-4.4) Thyroid Stimulating Hormone (TSH) 0.946 uiU/mL (0.358-3.740) Height (Feet): 5 Height (Inches): 2.00 Weight (Pounds): 126 Medications Current Medications Medications (Trade) Dose Ordered Sig/Tamra Route PRN Reason Start Time Stop Time Status Last Admin Dose Admin Acetaminophen (Tylenol) 650 mg Q4H PRN ORAL FEVER 09/26/17 23:00 10/26/17 22:59 Albuterol/ Ipratropium (Albuterol/ Ipratropium) 3 ml Q4H PRN HHN Shortness of Breath 09/26/17 23:00 10/01/17 22:59 Amlodipine Besylate (Norvasc) 2.5 mg DAILY ORAL 09/27/17 09:00 10/27/17 08:59 09/27/17 08:09 Atenolol (Tenormin) 25 mg DAILY ORAL 09/27/17 09:00 10/27/17 08:59 09/27/17 08:09 Cyclobenzaprine HCl (Flexeril) 10 mg BID PRN ORAL Muscle Spasm 09/26/17 23:00 10/26/17 22:59 Diltiazem HCl (Cardizem) 10 mg Q1H PRN IV heart rate more than 120, 09/26/17 23:00 10/26/17 22:59 Enalaprilat (Vasotec) 2.5 mg Q6H PRN IV sbp more than 160 09/26/17 23:00 10/26/17 22:59 Famotidine (Pepcid) 20 mg DAILY ORAL 09/28/17 09:00 10/28/17 08:59 Heparin Sodium (Porcine) (Heparin 5000 units/ml) 5,000 units EVERY 12 HOURS SUBQ 09/27/17 09:00 10/27/17 08:59 Losartan Potassium (Cozaar) 50 mg DAILY ORAL 09/27/17 09:00 10/27/17 08:59 09/27/17 08:09 Morphine Sulfate (Morphine Sulfate) 2 mg Q4H PRN IVP severe Pain (Pain Scale 7-10) 09/26/17 23:00 10/03/17 22:59 09/28/17 00:21 Nitroglycerin (Ntg) 0.4 mg PRN PRN SL Prn Chest Pain 09/26/17 23:00 10/26/17 22:59 Ondansetron HCl (Zofran) 4 mg Q6H PRN IVP Nausea & Vomiting 09/26/17 23:00 10/26/17 22:59 Polyethylene Glycol (Miralax) 17 gm DAILYPRN PRN ORAL Constipation 09/26/17 23:00 10/26/17 22:59 Temazepam (Restoril) 15 mg HSPRN PRN ORAL Insomnia 09/26/17 23:00 10/03/17 22:59 09/27/17 22:09 Kal Hanson M.D. Sep 28, 2017 00:42
[2017-09-28 04:00] VITALS: BP 144/96
--- NOTE | 2017-09-28 07:19 | Pulmonology Progress Note ---
Assessment/Plan Assessment/Plan ASSESSMENT Chest pain,noncardiac, possibly musculoskeletal versus due to GERD Hypertensive urgency-resolved Acute encephalopathy-resolved Arthritis GERD PLAN OF CARE Serial troponin and EKG echocardiogram with preserved ejection fraction 60% and right ventricular systolic pressure of 25 Aspirin and nitroglycerin PRN Blood pressure management with BB, CCB and ARB, optimize further as needed, stable lipid panel with stable LDL, borderline TG, educated on low fat low cholesterol diet DVT GI prophylaxis Pain management per assistant professor of dietetics chest pain did not appear to be cardiac in nature. EKG w/out ischemia, ECHO with pEF and troponin normal chest pain possibly due to GERD vs musculoskeletal recommend outpt endoscopy H pylori testing fall precautions, X ray shoulder and hip - no acute fracture, some degenerative changes on hip X ray PT/OT , ambulate pain management outpatient ischemia evaluation as routine-per cardio transfer to [facility] floor case discussed and evaluated by supervising physician Subjective Allergies: Coded Allergies: IBUPROFEN (Verified Allergy, Intermediate, RASH, 04/18/12) METOCLOPRAMIDE HCL (Verified Allergy, Intermediate, RASH, 04/18/12) PROCHLORPERAZINE EDISYLATE (Verified Allergy, Intermediate, RASH, 04/18/12) PROCHLORPERAZINE MALEATE (Verified Allergy, Intermediate, RASH, 04/18/12) Subjective patient denies chest pain, SOB reported fall at home, using crutch to ambulate patient stated that possibly pulled chest muscle while trying to get steady and avoid fall at home Objective Last 24 Hour Vital Signs Date Time Temp Pulse Resp B/P (MAP) Pulse Ox O2 Delivery O2 Flow Rate FiO2 09/28/17 06:06 97.7 09/28/17 05:36 97.7 09/28/17 04:00 97.8 70 18 144/96 95 Room Air 97.8 09/28/17 04:00 69 09/28/17 00:21 97.7 09/28/17 00:00 75 09/28/17 00:00 97.8 61 18 159/93 100 Room Air 97.8 09/27/17 20:24 97.7 09/27/17 20:00 70 18 Room Air 21 09/27/17 20:00 98.2 69 18 147/78 98 Room Air 98.2 09/27/17 20:00 85 09/27/17 16:31 97.7 09/27/17 16:04 97.7 65 18 158/90 98 Room Air 97.7 09/27/17 15:53 55 09/27/17 11:55 62 09/27/17 11:40 97.7 63 18 126/78 98 Room Air 97.7 09/27/17 11:01 97.0 09/27/17 10:38 86 20 Room Air 21 09/27/17 08:09 154/91 09/27/17 08:09 79 154/91 09/27/17 08:09 79 154/91 09/27/17 07:53 67 09/27/17 07:52 97.0 79 18 154/91 98 Room Air 97.0 Intake and Output 09/27/17 09/28/17 19:00 07:00 Intake Total 480 ml Balance 480 ml Intake Oral 480 ml # Voids 4 General Appearance: no acute distress HEENT: normocephalic, atraumatic Respiratory/Chest: lungs clear, no respiratory distress, no accessory muscle use Cardiovascular: normal rate - SR on tele Abdomen: soft, non tender, non distended Extremities: no edema, pedal pulses normal Neurologic/Psychiatric: abnormal gait - with cruth, unsteady , alert, responsive Musculoskeletal: atrophy - BLE Laboratory Tests 09/27/17 23:30: Troponin I 0.000 Current Medications Medications (Trade) Dose Ordered Sig/Tamra Route PRN Reason Start Time Stop Time Status Last Admin Dose Admin Acetaminophen (Tylenol) 650 mg Q4H PRN ORAL FEVER 09/26/17 23:00 10/26/17 22:59 Albuterol/ Ipratropium (Albuterol/ Ipratropium) 3 ml Q4H PRN HHN Shortness of Breath 09/26/17 23:00 10/01/17 22:59 Amlodipine Besylate (Norvasc) 2.5 mg DAILY ORAL 09/27/17 09:00 10/27/17 08:59 09/27/17 08:09 Atenolol (Tenormin) 25 mg DAILY ORAL 09/27/17 09:00 10/27/17 08:59 09/27/17 08:09 Cyclobenzaprine HCl (Flexeril) 10 mg BID PRN ORAL Muscle Spasm 09/26/17 23:00 10/26/17 22:59 Diltiazem HCl (Cardizem) 10 mg Q1H PRN IV heart rate more than 120, 09/26/17 23:00 10/26/17 22:59 Enalaprilat (Vasotec) 2.5 mg Q6H PRN IV sbp more than 160 09/26/17 23:00 10/26/17 22:59 Famotidine (Pepcid) 20 mg DAILY ORAL 09/28/17 09:00 10/28/17 08:59 Heparin Sodium (Porcine) (Heparin 5000 units/ml) 5,000 units EVERY 12 HOURS SUBQ 09/27/17 09:00 10/27/17 08:59 Losartan Potassium (Cozaar) 50 mg DAILY ORAL 09/27/17 09:00 10/27/17 08:59 09/27/17 08:09 Morphine Sulfate (Morphine Sulfate) 2 mg Q4H PRN IVP severe Pain (Pain Scale 7-10) 09/26/17 23:00 10/03/17 22:59 09/28/17 05:36 Nitroglycerin (Ntg) 0.4 mg PRN PRN SL Prn Chest Pain 09/26/17 23:00 10/26/17 22:59 Ondansetron HCl (Zofran) 4 mg Q6H PRN IVP Nausea & Vomiting 09/26/17 23:00 10/26/17 22:59 Polyethylene Glycol (Miralax) 17 gm DAILYPRN PRN ORAL Constipation 09/26/17 23:00 10/26/17 22:59 Temazepam (Restoril) 15 mg HSPRN PRN ORAL Insomnia 09/26/17 23:00 10/03/17 22:59 09/27/17 22:09 Carley Gabriel NP Sep 28, 2017 07:19
[2017-09-28 08:00] VITALS: BP 127/75
[2017-09-28] MEDS: Heparin 5000 units/ml inj SUBQ SCH ×2 (09:00→21:37)
[2017-09-28] MEDS: Losartan 50mg tab ORAL SCH (09:31)
[2017-09-28] MEDS: Atenolol 25mg tab ORAL SCH (09:32)
--- NOTE | 2017-09-28 10:27 | Cardiology Progress Note ---
Assessment/Plan Status: stable Assessment/Plan Hypertension Coronary artery disease Chest pain GERD Arthritis Plans Chest pain does not appear to be cardiac in nature. Her EKG has no ischemia, echo has preserved LV function and her troponin is normal. Continue aspirin/statin Continue blood pressure medications Outpatient endoscopy H pylori testing Cardiac diet Ambulate nitro SL prn chest pain Outpatient ischemia evaluation routine Subjective Cardiovascular: Reports: no symptoms Respiratory: Reports: no symptoms Gastrointestinal/Abdominal: Reports: no symptoms Genitourinary: Reports: no symptoms Subjective NO chest pain, no acute events Complain of left leg pain Objective Last 24 Hour Vital Signs Date Time Temp Pulse Resp B/P (MAP) Pulse Ox O2 Delivery O2 Flow Rate FiO2 09/28/17 09:32 53 127/75 09/28/17 09:31 127/75 09/28/17 09:31 53 127/75 09/28/17 07:46 72 18 Room Air 21 09/28/17 06:06 97.7 09/28/17 05:36 97.7 09/28/17 04:00 97.8 70 18 144/96 95 Room Air 97.8 09/28/17 04:00 69 09/28/17 00:21 97.7 09/28/17 00:00 75 09/28/17 00:00 97.8 61 18 159/93 100 Room Air 97.8 09/27/17 20:24 97.7 09/27/17 20:00 70 18 Room Air 21 09/27/17 20:00 98.2 69 18 147/78 98 Room Air 98.2 09/27/17 20:00 85 09/27/17 16:31 97.7 09/27/17 16:04 97.7 65 18 158/90 98 Room Air 97.7 09/27/17 15:53 55 09/27/17 11:55 62 09/27/17 11:40 97.7 63 18 126/78 98 Room Air 97.7 09/27/17 11:01 97.0 09/27/17 10:38 86 20 Room Air 21 General Appearance: no apparent distress EENT: normal ENT inspection Neck: non-tender Rhythm: NSR Cardiovascular: normal peripheral pulses Respiratory/Chest: chest wall non-tender Abdomen: no organomegaly Extremities: non-tender Neurologic: no motor/sensory deficits Intake and Output 09/27/17 09/28/17 19:00 07:00 Intake Total 480 ml Balance 480 ml Intake Oral 480 ml # Voids 4 Laboratory Tests Test 09/27/17 23:30 Troponin I 0.000 ng/mL (0.000-0.056) Kal Hanson M.D. Sep 28, 2017 10:27
[2017-09-28 12:00] VITALS: BP 140/90
[2017-09-28 16:00] VITALS: BP 123/74
[2017-09-28] MEDS ORDERED: dilTIAZem HCl 25mg/5ml Inj IV PRN (16:00)
[2017-09-28] MEDS ORDERED: Enalaprilat 2.5mg/2ml Inj IV PRN (17:00)
[2017-09-28] MEDS ORDERED: Cyclobenzaprine 10mg Tab ORAL PRN (18:00)
[2017-09-28] MEDS ORDERED: Albuterol/Ipratropium 3ml neb HHN PRN (19:00)
[2017-09-28 20:00] VITALS: BP 138/84
[2017-09-28] MEDS ORDERED: Miralax 17gm pkt ORAL PRN (23:00)
[2017-09-28] MEDS ORDERED: Nitroglycerin Subl 0.4mg tab SL PRN (23:00)
[2017-09-29] VITALS: BP 121/83
[2017-09-29] MEDS: Morphine Sulfate 2mg/ml Inj IVP PRN ×5 (02:47→22:05)
[2017-09-29 04:00] VITALS: BP 129/81
[2017-09-29 08:00] VITALS: BP 136/80
--- NOTE | 2017-09-29 09:09 | Pulmonology Progress Note ---
Assessment/Plan Assessment/Plan ASSESSMENT Chest pain,noncardiac, probably musculoskeletal versus due to GERD Hypertensive urgency-resolved Acute encephalopathy-resolved Arthritis GERD PLAN OF CARE [facility] floor Serial troponin and EKG echocardiogram with preserved ejection fraction 60% and right ventricular systolic pressure of 25 Aspirin and nitroglycerin PRN Blood pressure management with BB, CCB and ARB, optimize further as needed, stable lipid panel with stable LDL, borderline TG, educated on low fat low cholesterol diet DVT GI prophylaxis Pain management per tank farm gauger chest pain did not appear to be cardiac in nature. EKG w/out ischemia, ECHO with pEF and troponin normal chest pain likely musculoskeletal vs due to GERD stat PT/OT ( ordered yesterday, not done) for evaluation and further recs re ambulation ,? need for rehab done this am recommended walker and HH services fall precautions, X ray shoulder and hip - no acute fracture, some degenerative changes on hip X ray recommend outpt endoscopy H pylori testing pain management outpatient ischemia evaluation as routine-per cardio dcin am with HH and walker case discussed and evaluated by supervising physician Subjective Allergies: Coded Allergies: IBUPROFEN (Verified Allergy, Intermediate, RASH, 04/18/12) METOCLOPRAMIDE HCL (Verified Allergy, Intermediate, RASH, 04/18/12) PROCHLORPERAZINE EDISYLATE (Verified Allergy, Intermediate, RASH, 04/18/12) PROCHLORPERAZINE MALEATE (Verified Allergy, Intermediate, RASH, 04/18/12) Subjective patient denies chest pain, SOB reported fall at home, using one crutch to ambulate patient stated that possibly pulled chest muscle while trying to get steady and avoid fall at home awaiting for PT eval ( ordered yesterday stat, not done) Objective Last 24 Hour Vital Signs Date Time Temp Pulse Resp B/P (MAP) Pulse Ox O2 Delivery O2 Flow Rate FiO2 09/29/17 08:00 98.1 90 20 136/80 97 98.1 09/29/17 06:56 68 18 Room Air 21 09/29/17 04:00 98.2 73 18 129/81 98 Room Air 98.2 09/29/17 00:00 97.5 76 17 121/83 100 Room Air 97.5 09/28/17 20:00 98.1 81 19 138/84 98 Room Air 98.1 09/28/17 18:52 97.7 09/28/17 18:22 97.7 6/30/18 16:00 97.7 77 20 123/74 100 Room Air 97.7 09/28/17 14:26 97.7 09/28/17 12:00 97.9 71 22 140/90 99 Room Air 97.9 09/28/17 09:32 53 127/75 09/28/17 09:31 127/75 09/28/17 09:31 53 127/75 Intake and Output 09/28/17 09/29/17 19:00 07:00 Intake Total 640 ml 300 ml Balance 640 ml 300 ml Intake Oral 640 ml 300 ml # Voids 1 2 Objective General Appearance: no acute distress HEENT: normocephalic, atraumatic Respiratory/Chest: lungs clear, no respiratory distress, no accessory muscle use Cardiovascular: normal rate - SR on tele Abdomen: soft, non tender, non distended Extremities: no edema, pedal pulses normal Neurologic/Psychiatric: abnormal gait - with cruth, unsteady , alert, responsive Musculoskeletal: atrophy - BLE Laboratory Tests 09/28/17 22:45: Troponin I 0.000 Current Medications Medications (Trade) Dose Ordered Sig/Tamra Route PRN Reason Start Time Stop Time Status Last Admin Dose Admin Acetaminophen (Tylenol) 650 mg Q4H PRN ORAL FEVER 09/28/17 19:00 10/26/17 22:59 Albuterol/ Ipratropium (Albuterol/ Ipratropium) 3 ml Q4H PRN HHN Shortness of Breath 09/28/17 19:00 10/01/17 22:59 Amlodipine Besylate (Norvasc) 2.5 mg DAILY ORAL 09/29/17 09:00 10/27/17 08:59 Atenolol (Tenormin) 25 mg DAILY ORAL 09/29/17 09:00 10/27/17 08:59 Cyclobenzaprine HCl (Flexeril) 10 mg BID PRN ORAL Muscle Spasm 09/28/17 18:00 10/26/17 22:59 Enalaprilat (Vasotec) 2.5 mg Q6H PRN IV sbp more than 160 09/28/17 17:00 10/26/17 22:59 Famotidine (Pepcid) 20 mg DAILY ORAL 09/29/17 09:00 10/28/17 08:59 Heparin Sodium (Porcine) (Heparin 5000 units/ml) 5,000 units EVERY 12 HOURS SUBQ 09/28/17 21:00 10/27/17 08:59 09/28/17 21:37 Losartan Potassium (Cozaar) 50 mg DAILY ORAL 09/29/17 09:00 10/27/17 08:59 Morphine Sulfate (Morphine Sulfate) 2 mg Q4H PRN IVP severe Pain (Pain Scale 7-10) 09/28/17 19:00 10/03/17 22:59 09/29/17 06:51 Nitroglycerin (Ntg) 0.4 mg PRN PRN SL Prn Chest Pain 09/28/17 23:00 10/26/17 22:59 Ondansetron HCl (Zofran) 4 mg Q6H PRN IVP Nausea & Vomiting 09/28/17 17:00 10/26/17 22:59 Polyethylene Glycol (Miralax) 17 gm DAILYPRN PRN ORAL Constipation 09/28/17 23:00 10/26/17 22:59 Temazepam (Restoril) 15 mg HSPRN PRN ORAL Insomnia 09/28/17 23:00 10/03/17 22:59 Carley Gabriel NP Sep 29, 2017 09:09
[2017-09-29] MEDS: Atenolol 25mg tab ORAL SCH (09:17)
[2017-09-29] MEDS: Losartan 50mg tab ORAL SCH (09:17)
[2017-09-29] MEDS: Heparin 5000 units/ml inj SUBQ SCH ×2 (09:18→20:50)
[2017-09-29 11:00] LABS: BASOPHILS % (AUTO) 0.3 % (0.0-2.0); EOSINOPHILS % (AUTO) 2.7 % (0.0-3.0); HEMATOCRIT 25.5 % (37.0-47.0); LYMPHOCYTES % (AUTO) 27.9 % (20.0-45.0); MEAN CORPUSCULAR VOLUME 90 FL (80-99); MONOCYTES % (AUTO) 13.8 % (1.0-10.0); NEUTROPHILS % (AUTO) 55.3 % (45.0-75.0); PLATELET COUNT 129 K/UL (150-450); RED BLOOD COUNT 2.82 M/UL (4.20-5.40); RED CELL DISTRIBUTION WIDTH 13.7 % (11.6-14.8); WHITE BLOOD COUNT 4.1 K/UL (4.8-10.8)
[2017-09-29 12:00] VITALS: BP 100/69
[2017-09-29 12:10] LABS: BASOPHILS % (AUTO) 1.2 % (0.0-2.0); EOSINOPHILS % (AUTO) 1.4 % (0.0-3.0); HEMATOCRIT 41.3 % (37.0-47.0); LYMPHOCYTES % (AUTO) 50.2 % (20.0-45.0); MEAN CORPUSCULAR VOLUME 94 FL (80-99); MONOCYTES % (AUTO) 5.4 % (1.0-10.0); NEUTROPHILS % (AUTO) 41.8 % (45.0-75.0); PLATELET COUNT 251 K/UL (150-450); RED BLOOD COUNT 4.41 M/UL (4.20-5.40); RED CELL DISTRIBUTION WIDTH 12.3 % (11.6-14.8); WHITE BLOOD COUNT 4.3 K/UL (4.8-10.8)
--- NOTE | 2017-09-29 13:40 | Cardiology Progress Note ---
Assessment/Plan Status: stable Assessment/Plan Assessment Hypertension Coronary artery disease Chest pain GERD Arthritis Plan Chest pain does not appear to be cardiac in nature. Her EKG has no ischemia, echo has preserved LV function and her troponin is normal. Continue aspirin/statin Continue blood pressure medications Outpatient endoscopy H pylori testing Cardiac diet Ambulate nitro SL prn chest pain Outpatient ischemia evaluation routine Ok to discharge DVT GI prophylaxis Pain management Subjective Cardiovascular: Reports: no symptoms Respiratory: Reports: no symptoms Gastrointestinal/Abdominal: Reports: no symptoms Genitourinary: Reports: no symptoms Subjective NO chest pain, no acute events Objective Last 24 Hour Vital Signs Date Time Temp Pulse Resp B/P (MAP) Pulse Ox O2 Delivery O2 Flow Rate FiO2 09/29/17 12:05 98.0 09/29/17 12:00 98.0 86 20 100/69 98 98.0 09/29/17 11:35 98.1 09/29/17 09:17 136/80 09/29/17 09:17 90 136/80 09/29/17 09:17 90 136/80 09/29/17 08:00 98.1 90 20 136/80 97 98.1 09/29/17 06:56 68 18 Room Air 21 09/29/17 04:00 98.2 73 18 129/81 98 Room Air 98.2 09/29/17 00:00 97.5 76 17 121/83 100 Room Air 97.5 09/28/17 20:00 98.1 81 19 138/84 98 Room Air 98.1 09/28/17 18:22 97.7 09/28/17 16:00 97.7 77 20 123/74 100 Room Air 97.7 09/28/17 14:26 97.7 General Appearance: no apparent distress EENT: PERRL/EOMI Neck: non-tender Rhythm: SB Cardiovascular: normal peripheral pulses Respiratory/Chest: lungs clear Abdomen: normal bowel sounds Extremities: normal range of motion Neurologic: broadcast director operations II-XII grossly normal Intake and Output 09/28/17 09/29/17 19:00 07:00 Intake Total 640 ml 300 ml Balance 640 ml 300 ml Intake Oral 640 ml 300 ml # Voids 1 2 Laboratory Tests Test 09/28/17 22:45 09/29/17 10:45 09/29/17 12:00 Troponin I 0.000 ng/mL (0.000-0.056) White Blood Count 4.1 K/UL (4.8-10.8) L 4.3 K/UL (4.8-10.8) L Red Blood Count 2.82 M/UL (4.20-5.40) L 4.41 M/UL (4.20-5.40) Hemoglobin 8.0 G/DL (12.0-16.0) L 13.0 G/DL (12.0-16.0) # Hematocrit 25.5 % (37.0-47.0) L 41.3 % (37.0-47.0) # Mean Corpuscular Volume 90 FL (80-99) 94 FL (80-99) Mean Corpuscular Hemoglobin 28.6 PG (27.0-31.0) 29.4 PG (27.0-31.0) Mean Corpuscular Hemoglobin Concent 31.6 G/DL (32.0-36.0) L 31.4 G/DL (32.0-36.0) L Red Cell Distribution Width 13.7 % (11.6-14.8) 12.3 % (11.6-14.8) Platelet Count 129 K/UL (150-450) L 251 K/UL (150-450) # Mean Platelet Volume 5.8 FL (6.5-10.1) L 6.1 FL (6.5-10.1) L Neutrophils (%) (Auto) 55.3 % (45.0-75.0) 41.8 % (45.0-75.0) L Lymphocytes (%) (Auto) 27.9 % (20.0-45.0) 50.2 % (20.0-45.0) H Monocytes (%) (Auto) 13.8 % (1.0-10.0) H 5.4 % (1.0-10.0) Eosinophils (%) (Auto) 2.7 % (0.0-3.0) 1.4 % (0.0-3.0) Basophils (%) (Auto) 0.3 % (0.0-2.0) 1.2 % (0.0-2.0) Kal Hanson M.D. Sep 29, 2017 13:40
[2017-09-29 16:00] VITALS: BP 99/65
[2017-09-29 20:00] VITALS: BP 139/76
[2017-09-30] VITALS: BP 129/78
--- NOTE | 2017-09-30 04:00 | Consultation ---
DATE OF CONSULTATION: 09/29/2017 NOTE: "POOR AUDIO" HEMATOLOGY/ONCOLOGY CONSULTATION CONSULTING PHYSICIAN: Mikel Gracia M.D. REQUESTING PHYSICIAN: Stacia Kirkpatrick M.D. REASON FOR CONSULTATION: Evaluation of anemia and leukopenia. IDENTIFYING DATA: Dear Dr. Kirkpatrick and Carley Harvey, The patient is a pleasant 56-year-old female with past medical history significant for hypertension, , left precordial chest pain for the past several days, has been compliant with her medications. This has been getting worse with exertion. negative acute intracranial process noted. It does not appear to be chronic in nature. Her chest pain is musculoskeletal most likely as per Cardiology, Dr. Hanson. Hematology service was consulted for further evaluation and treatment of leukopenia. PAST MEDICAL HISTORY: As noted above. MEDICATIONS: Amlodipine, atenolol, aspirin, diazepam, losartan, metoprolol, . ALLERGIES: Ibuprofen, vancomycin, and prochlorperazine. FAMILY HISTORY: Noncontributory. REVIEW OF SYSTEMS: CONSTITUTIONAL: No fevers, chills, or night sweats. SKIN: No rashes, bumps, or itching. HEENT: No headache, hearing or vision changes. BREASTS: No lumps, pain, or discharge. PULMONARY: No cough, sputum, or shortness of breath. GASTROINTESTINAL: No nausea, vomiting, or diarrhea. GENITOURINARY: No dysuria, frequency, or urgency. MUSCULOSKELETAL: No joint swelling, muscle pain, or trauma. PHYSICAL EXAMINATION: VITAL SIGNS: Reviewed. GENERAL: No acute distress. PULMONARY: Decreased breath sounds. CARDIOVASCULAR: Regular rate. No S3 or S4. ABDOMEN: Soft, nontender, and nondistended. EXTREMITIES: 1+ edema. LABORATORY AND DIAGNOSTIC DATA: WBC 4.3, hemoglobin of 8, hematocrit 26, and platelets 129,000. Imaging reviewed. Hip x-ray shows mild degenerative changes. No acute bony trauma noted. ASSESSMENT AND RECOMMENDATIONS: 1. Leukopenia infectious component. In addition, obtain hepatitis panel and HIV. 2. Anemia due to underlying chronic disease. Anemia workup has been reviewed. 3. Acute encephalopathy, currently resolved. 4. Hypertensive urgency, currently resolved. Continue antihypertensive medications. 5. Chest pain, noncardiac, most likely as per Cardiology. Obtain PT and OT. 6. The patient is cleared for discharge by Hematology. Mikel Gracia M.D. DR: ABBE JOB#: [id number] CC:
[2017-09-30 05:00] VITALS: BP 144/87
[2017-09-30] MEDS: Morphine Sulfate 2mg/ml Inj IVP PRN ×2 (05:00→09:18)
[2017-09-30 08:00] VITALS: BP 122/88
[2017-09-30] MEDS: Heparin 5000 units/ml inj SUBQ SCH (08:33)
[2017-09-30] MEDS: Losartan 50mg tab ORAL SCH (08:36)
[2017-09-30] MEDS: Atenolol 25mg tab ORAL SCH (08:37)
[2017-09-30 08:38] VITALS: BP 126/87
--- NOTE | 2017-09-30 11:41 | General Progress Note ---
Assessment/Plan Status: stable Assessment/Plan 1. Leukopenia secondary infectious component. --> hepatitis panel and HIV results pending --> wbc slightly improving --> cont abx w/ ID service 2. Anemia due to underlying chronic disease. --> Anemia workup has been reviewed, will trend daily. --> hgb goal >7 3. Acute encephalopathy, --> currently resolved. 4. Hypertensive urgency, currently resolved. --> Continue antihypertensive medications. 5. Chest pain, noncardiac, most likely noncardiac as per Cardiology. --> Seen by OT and warranted. PT pending. 6. The patient is cleared for discharge by Hematology. Subjective Date patient seen: Sep 30, 2017 ROS Limited/Unobtainable: Yes Allergies: Coded Allergies: IBUPROFEN (Verified Allergy, Intermediate, RASH, 04/18/12) METOCLOPRAMIDE HCL (Verified Allergy, Intermediate, RASH, 04/18/12) PROCHLORPERAZINE EDISYLATE (Verified Allergy, Intermediate, RASH, 04/18/12) PROCHLORPERAZINE MALEATE (Verified Allergy, Intermediate, RASH, 04/18/12) All Systems: reviewed and negative except above Subjective No acute events. Vitals are stable. Objective Last 24 Hour Vital Signs Date Time Temp Pulse Resp B/P (MAP) Pulse Ox O2 Delivery O2 Flow Rate FiO2 09/30/17 09:48 97.6 09/30/17 09:18 97.6 09/30/17 08:38 92 126/87 09/30/17 08:37 92 126/87 09/30/17 08:36 126/87 09/30/17 08:00 99.1 98 19 122/88 97 Room Air 99.1 09/30/17 05:00 97.6 89 18 144/87 97 97.6 09/30/17 00:00 98.4 70 18 129/78 99 98.4 09/29/17 20:00 99.0 76 18 139/76 100 99.0 09/29/17 19:49 71 18 Room Air 21 09/29/17 17:50 97.4 09/29/17 16:00 97.4 66 20 99/65 98 97.4 09/29/17 12:00 98.0 86 20 100/69 98 98.0 09/29/17 11:35 98.1 Intake and Output 09/29/17 09/30/17 19:00 07:00 Intake Total 400 ml Balance 400 ml Intake Oral 400 ml # Voids 2 Laboratory Tests 09/29/17 12:00: White Blood Count 4.3L, Red Blood Count 4.41, Hemoglobin 13.0#, Hematocrit 41.3# , Mean Corpuscular Volume 94, Mean Corpuscular Hemoglobin 29.4, Mean Corpuscular Hemoglobin Concent 31.4L, Red Cell Distribution Width 12.3, Platelet Count 251#, Mean Platelet Volume 6.1L, Neutrophils (%) (Auto) 41.8L, Lymphocytes (%) (Auto) 50.2H, Monocytes (%) (Auto) 5.4, Eosinophils (%) (Auto) 1.4, Basophils (%) (Auto) 1.2 09/29/17 18:26: HIV (1&2) Antibody Rapid Negative 09/29/17 19:00: Hepatitis A IgM Antibody [Pending], Hepatitis B Surface Antigen [Pending], Hepatitis B Core IgM Antibody [Pending], Hepatitis C Antibody [Pending] Height (Feet): 5 Height (Inches): 2.00 Weight (Pounds): 126 General Appearance: no apparent distress, alert EENT: PERRL/EOMI Neck: normal alignment, supple Cardiovascular: normal peripheral pulses Respiratory/Chest: no respiratory distress Abdomen: soft Mikel Gracia MD Sep 30, 2017 11:41
--- NOTE | 2017-09-30 13:04 | Cardiology Report ---
APPROVED REPORT EXAM: Two-dimensional and M-mode echocardiogram with Doppler and color Doppler. INDICATION Left ventricular function M-Mode DIMENSIONS IVSd1.9 (0.7-1.1cm)Left Atrium (MM)3.2 (1.6-4.0cm) LVDd2.1 (3.5-5.6cm)Aortic Root2.6 (2.0-3.7cm) PWd0.9 (0.7-1.1cm)Aortic Cusp Exc.1.7 (1.5-2.0cm) LVDs1.2 (2.5-4.0cm) PWs1.4 cm Normal left ventricular chamber size, systolic function and wall motion. Left ventricular ejection fraction estimated to be 60 %. Mild left ventricular hypertrophy. Anterior Echo-free space, may be due to pericardial fat or effusion. All other cardiac chamber sizes are within normal limits. Focal aortic valve sclerosis with adequate cusp excursion. Thickened mitral valve leaflets with normal excursion. Mild mitral annulus and aortic root calcification. Normal pulmonic valve structure. Normal tricuspid valve structure. IVC measures at 1.9 cm with physiological collapse. A color flow and spectral Doppler study was performed and revealed: No aortic insufficiency. Trace mitral regurgitation. Mitral diastolic velocities indicate normal left ventricular diastolic function. Trace tricuspid regurgitation. Tricuspid systolic velocities suggests peak right ventricular systolic pressure of 25 mmHg. No pulmonic regurgitation present.
--- NOTE | 2017-10-01 12:32 | Discharge Summary ---
Discharge Summary Discharge Summary _ DATE OF ADMISSION: 09/26/2017 DATE OF DISCHARGE: 09/30/2017 REASON FOR ADMISSION: 56 years old female with past medical history significant for coronary artery disease, hypertension, presented to emergency department complaining of 6 out of 10 left-sided anterior chest pain for 2 days. She reported pain reproducible with palpation as well as while taking deep breaths. Patient reported that she was walking in the hallway when her left leg gave out on her. As a result, she sustained mechanical fall , but denied hitting her head or loss of consciousness. Patient reported hitting her left hip and left shoulder and as a result had intermittent pain in these areas. She denied dizziness ,nausea, vomiting or abdominal pain . Upon evaluation in emergency department vital signs revealed tachycardia in 120s , blood pressure was elevated 178/92 ,pulse oximetry was stable on room air. EKG revealed sinus tachycardia with ST depression in lateral leads and T-wave inversion. CBC with evidence of leukopenia , electrolytes and renal parameters stable , troponin negative CK within normal limits Chest x-ray revealed no acute cardiopulmonary pathology . X-ray of the left shoulder and left hip were negative for acute fracture . Patient was medicated for pain and admitted to telemetry floor for further management with diagnosis chest pain, rule out acute coronary syndrome, hypertensive urgency, left hip and left shoulder contusion 2 to mechanical fall. CONSULTANTS: maintenance coordinator dr. Hanson director of retail merchandising/oncologist Dr. Gracia [facility] COURSE: Patient admitted to telemetry floor. Serial troponin were negative . EKG revealed no acute ischemic changes. patient was ruled out for acute [place]. Echocardiogram revealed preserved ejection fraction of 60% and right ventricular systolic pressure of 25, no wall motion abnormalities were noted. Patient was continued with antiplatelet therapy/ aspirin and started on nitroglycerin as needed . Blood pressure was managed with beta cortney , calcium channel cortney and ARB. Initial hypertensive urgency resolved. Lipid panel revealed elevated triglyceride patient was consult on low-fat low- cholesterol diet. DVT and GI prophylaxis provided. Pain management provided Per maintenance coordinator chest pain did not appear to be cardiac in nature : troponin negative, ECHO with preserved ejection fraction , EKG without ischemic chest. Pain likely musculoskeletal versus GERD However due to the patient's history of mechanical fall and contusion of left hip and left shoulder , and pattern of pain -reproducible on palpation , chest pain was most probably musculoskeletal. Pain management provided. Patient started to work with physical and occupational therapists. Fall precautions maintained. Patient was recommended to have outpatient endoscopy and H. pylori testing. Valve Machine Operator recommended outpatient ischemia evaluation as a routine. Per physical therapy recommendations, home health services for PT/ OT arranged, walker dispensed. Patient was stable for discharge FINAL DIAGNOSES: Chest pain noncardiac, probably musculoskeletal Hypertensive urgency, resolved GERD Acute encephalopathy, resolved Arthritis Leukopenia, improved DISCHARGE MEDICATIONS: See Medication Reconciliation list. DISCHARGE INSTRUCTIONS: Patient was discharged home with home health services for PT/ OT. Patient was instructed on fall precaution and safe ambulation .Walker dispensed . Patient was recommended to have outpatient endoscopy and H. pylori testing. Valve Machine Operator recommended outpatient ischemia evaluation as a routine to be arranged by primary care nely. I Carley Gabriel NP Oct 01, 2017 12:32
== END 2017-09-30 12:05 | disposition home health service (06) | DRG 555 ==
LOC: EMR 19:03 → 2E 19:08 → EDBEDREQ 20:52 → 3E 09-28 15:19
DX: M79.1 Myalgia (principal); G93.40 Encephalopathy, unspecified; R07.89 Other chest pain; I16.0 Hypertensive urgency; S40.012A Contusion of left shoulder, initial encounter; S70.02XA Contusion of left hip, initial encounter; W19.XXXA Unspecified fall, initial encounter; Y92.008 Other place in unspecified non-institutional (private) residence as the place of occurrence of the external cause; I25.10 Atherosclerotic heart disease of native coronary artery without angina pectoris; K21.9 Gastro-esophageal reflux disease without esophagitis; M19.90 Unspecified osteoarthritis, unspecified site; Z88.6 Allergy status to analgesic agent; Z88.8 Allergy status to other drugs, medicaments and biological substances; G25.81 Restless legs syndrome; M54.30 Sciatica, unspecified side; D63.8 Anemia in other chronic diseases classified elsewhere
CPT/HCPCS: 36415; 71045; 73502; 80053; 80061; 82550; 82553; 84443; 84484; 85025; 85610; 85730; 86140; 86703; 86705; 86709; 86803; 87340; 93005; 93306; 94664; 99285